=== PATIENT | female | born 1985 | race Caucasian/White ===

== ENCOUNTER 2017-09-16 15:54 | Outpatient (CLI) | payer OTHER ==
--- NOTE | 2017-09-16 18:02 | ULT ---
ULTRASOUND BIOPHYSICAL PROFILE: 09/16/17 HISTORY: 32-year-old female in third trimester of with polyhydramnios. FINDINGS: breathin tone: 2 movement: 2 Amniotic fluid volume: 2 IMPRESSION: Normal biophysical profile score of 8/8, excluding the non-stress test. [email or web address] [] POS: [facility]
--- NOTE | 2017-09-16 18:09 | ULT ---
ULTRASOUND OBSTETRICAL COMPLETE: 09/16/17 HISTORY: 32-year-old female with polyhydramnios in third trimester of . FINDINGS: number: Foster. lie: Cephalic. Maternal cervix: 3 cm in length, and closed. Placenta: Anterior. No placenta previa. Amniotic fluid volume: 20.5 cm. heart rate: 153 bpm The following anatomy is visualized, with no evidence of anomalies: Head, cord insertion, lower extremities, three vessel cord, four chamber heart, and stomach. biometry: Head circumference (HC): 33.0 cm 37w 4d Biparietal diameter (BPD): 9.0 cm 36w 2d Abdominal circumference (AC): 34.2 cm 38w 1d Femur length (FL): 7.0 cm 35w 5d Average ultrasound age (AUA): 37w 1d Estimated date of delivery (KUMAR): 10/06/17. Last menstrual period (LMP): 12/26/16. Gestational age by LMP: 37w 5d Estimated weight (EFW): 3172 g +/- 470 g (7 lb. 0 oz. +/- 17 oz.) IMPRESSION: 1. Live third trimester intrauterine gestation. 2. Estimated gestational age of 37 weeks, 1 day. 3. Cephalic lie. 4. Amniotic fluid index of 20.5 cm. IVAN Moss POS: [facility]
== END 2017-09-16 15:55 | disposition home or self-care (01) ==
LOC: ULT 15:54
PROVIDERS: ATTEND Family Medicine
DX: O40.3XX0 Polyhydramnios, third trimester, not applicable or unspecified (principal); Z3A.37 37 weeks gestation of pregnancy
CPT/HCPCS: 76805; 76819

== ENCOUNTER 2017-09-30 05:49 | Inpatient (IN) | payer OTHER ==
[2017-09-30] MEDS ORDERED: Ibuprofen 800 MG TAB PO PRN (06:48)
[2017-09-30] MEDS ORDERED: Ondansetron HCl/PF 4 MG/2 ML Vial IVP PRN ×2 (06:48→21:19)
[2017-09-30] MEDS ORDERED: HYDROcodone/Acetaminophen 5/325 mg Tablet PO PRN ×2 (06:48→21:19)
[2017-09-30] MEDS ORDERED: Lidocaine 1% (PF) 30 ML VIAL SC PRN (06:48)
[2017-09-30] MEDS ORDERED: Acetaminophen 500 MG TAB PO PRN (06:48)
[2017-09-30] MEDS ORDERED: LR / Pitocin 40 units/1000 ml 1,000 ML IV PRN (06:48)
[2017-09-30] MEDS ORDERED: Acetaminophen/Codeine 30-300mg Tablet PO PRN ×2 (06:48→21:19)
[2017-09-30] MEDS ORDERED: Promethazine HCl 25 MG/ML VIAL IM PRN (06:48)
[2017-09-30] MEDS ORDERED: LR 500 ML/Oxytocin 10 units 500 ML IV SCH ×2 (07:00)
[2017-09-30] MEDS: Lactated Ringer's 1,000 ML IV SCH ×2 (07:05→10:27)
[2017-09-30 07:25] LABS: Hemoglobin 12.6 g/dL (12.0-16.0); Mean Corpuscular HGB CONC 35.1 g/dL (32.0-36.0); Mean Corpuscular Hemoglobin 34.3 pg (27.0-31.0); Mean Corpuscular Volume 97.6 fl (81.0-99.0); Mean Platelet Volume 8.4 fL (7.4-10.4); Platelet Count 231 thou/uL (130-400); RBC Distribution Width 12.3 % (11.5-14.5); Red Blood Cell (RBC) Count 3.69 mill/uL (4.20-5.40); White Blood Cell (WBC) Count 14.9 thou/uL (4.8-10.8)
[2017-09-30 07:32] VITALS: BMI 43.9
[2017-09-30 07:55] LABS: HBSAg Index 0.14 S/CO (0-0.99); Hep B Surf Ag Non-Reactive S/CO (NonReactive); Syphilis Antibody Nonreactive (Nonreactive); Syphilis Antibody Index 0.06 S/CO (<1.00 Non-Reactive)
[2017-09-30] MEDS ORDERED: Milk Of Magnesia 30 ML UDCUP PO PRN (21:19)
[2017-09-30] MEDS ORDERED: Bisacodyl 10 MG SUPP PR PRN (21:19)
[2017-09-30] MEDS ORDERED: diphenhydrAMINE 25 MG CAP PO PRN (21:19)
[2017-09-30] MEDS ORDERED: Preparation H Ointment 28 GM TUBE PR PRN (21:19)
[2017-09-30] MEDS ORDERED: Benzocaine/Menthol 20-0.5% 60 ML CAN TOP PRN (21:19)
[2017-09-30] MEDS ORDERED: Lanolin Ointment 7 GM TUBE TOP PRN (21:19)
[2017-09-30] MEDS ORDERED: LR / Pitocin 40 units/1000 ml 1,000 ML IV SCH (21:19)
[2017-09-30] MEDS ORDERED: Adacel (T-DAP) 0.5 ML VIAL IM ONE (21:19)
[2017-09-30] MEDS: Ibuprofen 800 MG TAB PO SCH (21:41)
[2017-10-01 05:47] LABS: Mean Corpuscular HGB CONC 34.4 g/dL (32.0-36.0); Mean Corpuscular Hemoglobin 33.8 pg (27.0-31.0); Mean Corpuscular Volume 98.2 fl (81.0-99.0); Mean Platelet Volume 8.6 fL (7.4-10.4); Platelet Count 182 thou/uL (130-400); RBC Distribution Width 12.1 % (11.5-14.5); Red Blood Cell (RBC) Count 3.25 mill/uL (4.20-5.40); White Blood Cell (WBC) Count 12.8 thou/uL (4.8-10.8)
[2017-10-01] MEDS: Ibuprofen 800 MG TAB PO SCH ×2 (05:57→13:24)
[2017-10-01] MEDS: Ferrous Sulfate 325 MG TAB PO SCH ×2 (08:16→15:42)
[2017-10-01] MEDS ORDERED: FLU VACC QS2017-18 36 mo. & older 0.5 ML SYRINGE IM ONE (09:00)
[2017-10-01] MEDS ORDERED: Prenatal Vitamin 1 TAB PO SCH (09:00)
[2017-10-01] MEDS ORDERED: Docusate Calcium (SURFAK) 240 MG CAP PO SCH (09:00)
[2017-10-01 20:32] VITALS: BP 107/59; TEMP 98.2
== END 2017-10-01 21:14 | disposition home or self-care (01) | DRG 775 ==
LOC: L&D 05:49 → 3SW 21:23
PROVIDERS: ADMIT Family Medicine; ATTEND Family Medicine
PROC: 10E0XZZ Delivery of Products of Conception, External Approach (ICD-10-PCS; principal; 2017-09-30)
PROC: 10907ZC Drainage of Amniotic Fluid, Therapeutic from Products of Conception, Via Natural or Artificial Opening (ICD-10-PCS; 2017-09-30)
PROC: 3E033VJ Introduction of Other Hormone into Peripheral Vein, Percutaneous Approach (ICD-10-PCS; 2017-09-30)
DX: O80 Encounter for full-term uncomplicated delivery (principal); Z37.0 Single live birth; Z3A.39 39 weeks gestation of pregnancy
CPT/HCPCS: 36415; 85027; 86780; 87340; 90715; J2001; J7120

== ENCOUNTER 2019-04-06 12:25 | Outpatient (CLI) | payer OTHER ==
--- NOTE | 2019-04-06 14:17 | ULT ---
OB ULTRASOUND: INDICATION: Evaluation of anatomy. FINDINGS: There is a live intrauterine gestation with cardiac activity of 132 beats documented. The imag ed anatomy is normal in appearance. Placenta is located anteriorly. The fetus is in a variabl e lie during the imaging portion of the exam. The amniotic fluid volume is subjectively normal. On the basis of ultrasound imaging, estimated gestational age is 19 weeks 4 days placing the estimated d ate of delivery 08/27/2019. Biparietal diameter corresponds to 19 weeks 2 day gestation, head circum ference 19 weeks 4 days, abdominal circumference 19 weeks 5 days, and femoral length 19 weeks 3 days. Estimated weight is 298 gm placing the fetus at the 43rd percentile by Hadlock criteria. IMPRESSION: Live intrauterine gestation as detailed above. As clinically necessary, continued imaging followup m ay be obtained. POS: [facility]
== END 2019-04-06 12:26 | disposition home or self-care (01) ==
LOC: BICULT 12:25
PROVIDERS: ATTEND Family Medicine
DX: Z34.80 Encounter for supervision of other normal pregnancy, unspecified trimester (principal); Z3A.19 19 weeks gestation of pregnancy
CPT/HCPCS: 76805